=== PATIENT | male | born 1965 | race African-American/Black ===

== ENCOUNTER 2016-09-10 17:59 | Emergency (ER) | payer MEDICAID ==
--- NOTE | 2016-09-10 18:25 | EDPHY ---
H & P Time Seen by Provider: 09/10/16 18:11 HPI/ROS: Chief complaint. Abdominal pain HPI. 50-year-old male presents emergency department with 2 hour history of dizziness, vomiting diarrhea, generalized weakness, abdominal pain. The abdominal pain is generalized and crampy. No fever. No cough, chest discomfort , shortness of breath. no known exposures to Infectious Disease or recent travel. No previous abdominal surgery ROS Constitutional. weakness] Eyes. no problems with vision ENT. no sore throat, no nasal drainage Cardiovascular. no chest pain Respiratory. no shortness of breath, no cough Abdominal. Generalized abdominal pain with vomiting and diarrhea . no problems urinating MS. no calf pain/swelling, no neck/back pain, no joint pain Skin. no rash Lymph. no swollen glands Neuro. Dizzy and weak Past Medical/Surgical History: Hypertension and dyslipidemia Social History: Single, nonsmoker, no alcohol Smoking Status: Never smoked Physical Exam: General Appearance: Alert well-developed male moderate distress vital signs are stable Eyes: Pupils equal and round no pallor or injection. ENT, Mouth: Mucous membranes are moist. Respiratory: There are no retractions, lungs are clear to auscultation. Cardiovascular: Regular rate and rhythm. Gastrointestinal: Abdomen is soft with generalized tenderness. Decreased bowel sounds. No masses Neurological: Awake and alert, sensory and motor exams grossly normal. Skin: Warm and dry, no rashes. Musculoskeletal: Neck is supple nontender. Extremities symmetrical, full range of motion. Psychiatric: Patient is oriented X 3, there is no agitation. Constitutional: Initial Vital Signs Temperature (C) 36.5 C 09/10/16 18:04 Heart Rate 77 09/10/16 18:04 Respiratory Rate 16 09/10/16 18:04 Blood Pressure 127/86 H 09/10/16 18:04 O2 Sat (%) 97 09/10/16 18:04 O2 Delivery Mode Room Air Allergies/Adverse Reactions: No Known Allergies Allergy (Verified 09/10/16 18:03) Home Medications: Medication Instructions Recorded Amlodipine Besylate 04/22/15 Pravastatin Sodium 04/22/15 hydrALAZINE 04/22/15 Ondansetron Odt [Zofran Odt] 4 mg PO Q4PRN PRN #4 tab 09/10/16 Medical Decision Making - Diagnostics Imaging: CT abdomen and pelvis with IV contrast reviewed by me and then discussed with Dr. Wier is consistent with gastroenteritis. No evidence of bowel obstruction or appendicitis Procedures: IV normal saline. Zofran for nausea morphine for ED Course/Re-evaluation: Re-evaluation 8:35 p.m.--patient is stable and feeling much better. He is taking oral fluids. He has no abdominal pain. No further nausea or diarrhea. Patient and I discussed imaging and lab results. We discussed treatment plan including criteria for return and importance of follow-up and further evaluation. He expresses understanding and agreement Differential Diagnosis: I considered appendicitis, diverticulitis, bowel obstruction, gastroenteritis - Data Points Laboratory Results: Laboratory Results 09/10/16 18:41 09/10/16 18:41 09/10/16 09/10/16 18:41 18:41 WBC 11.06 10^3/uL H 10^3/uL (3.80-9.50) RBC 6.88 10^6/uL H 10^6/uL (4.40-6.38) Hgb 15.3 g/dL g/dL (13.7-17.5) Hct 49.1 % % (40.0-51.0) MCV 71.4 fL L fL (81.5-99.8) MCH 22.2 pg L pg (27.9-34.1) MCHC 31.2 g/dL L g/dL (32.4-36.7) RDW 18.5 % H % (11.5-15.2) Plt Count 273 10^3/uL 10^3/uL (150-400) MPV 10.9 fL fL (8.7-11.7) Neut % (Auto) 88.0 % H % (39.3-74.2) Lymph % (Auto) 6.3 % L % (15.0-45.0) [place] % (Auto) 4.4 % L % (4.5-13.0) Eos % (Auto) 0.7 % % (0.6-7.6) Baso % (Auto) 0.2 % L % (0.3-1.7) Nucleat RBC Rel Count 0.0 % % (0.0-0.2) Absolute Neuts (auto) 9.73 10^3/uL H 10^3/uL (1.70-6.50) Absolute Lymphs (auto) 0.70 10^3/uL L 10^3/uL (1.00-3.00) Absolute Monos (auto) 0.49 10^3/uL 10^3/uL (0.30-0.80) Absolute Eos (auto) 0.08 10^3/uL 10^3/uL (0.03-0.40) Absolute Basos (auto) 0.02 10^3/uL 10^3/uL (0.02-0.10) Absolute Nucleated RBC 0.00 10^3/uL 10^3/uL (0-0.01) Immature Gran % 0.4 % % (0.0-1.1) Immature Gran # 0.04 10^3/uL 10^3/uL (0.00-0.10) Sodium 141 mEq/L mEq/L (134-144) Potassium 3.8 mEq/L mEq/L (3.5-5.2) Chloride 98 mEq/L mEq/L (97-110) Carbon Dioxide 26 mEq/l mEq/l (22-31) Anion Gap 17 mEq/L H mEq/L (8-16) BUN 15 mg/dL mg/dL (7-23) Creatinine 1.4 mg/dL H mg/dL (0.7-1.3) Estimated GFR 53 Glucose 117 mg/dL H mg/dL (70-100) Calcium 10.0 mg/dL mg/dL (8.5-10.4) Lipase 88.0 IU/L IU/L (23-300) Medications Given: Discontinued Medications Sodium Chloride (Ns) 1,000 mls @ 0 mls/hr IV ONCE ONE PRN Reason: Wide Open Stop: 09/10/16 18:38 Last Admin: 09/10/16 19:03 Dose: 1,000 mls Sodium Chloride (Ns) 1,000 mls @ 0 mls/hr IV ONCE ONE PRN Reason: Wide Open Stop: 09/10/16 18:38 Last Admin: 09/10/16 19:04 Dose: 1,000 mls Morphine Sulfate (Morphine) 6 mg IVP EDNOW ONE Stop: 09/10/16 18:38 Last Admin: 09/10/16 19:03 Dose: Not Given Ondansetron HCl (Zofran) 4 mg IVP EDNOW ONE Stop: 09/10/16 18:38 Last Admin: 09/10/16 19:04 Dose: 4 mg Departure - Departure Disposition: Home, Routine, Self-Care Clinical Impression: Gastroenteritis Condition: Good Instructions: Acute Nausea and Vomiting (ED), Acute Diarrhea (ED), Loperamide ( By mouth) Additional Instructions: Frequent, small sips fluids well nauseated. Gradual diet advancement. If you are nauseated and vomiting use Zofran which dissolves under your tongue. Wait 20-30 minutes and then begin frequent, small sips fluids. For diarrhea there is a medication called Imodium (loperamide. You may by this without a prescription at the grocery store. Return over the weekend for worsening symptoms. Recheck on Monday for continuing symptoms Referrals: [facility] [Other] - 2-3 days, if not improved Prescriptions: Ondansetron Odt [Zofran Odt] 4 mg PO Q4PRN PRN #4 tab PRN Reason: Nausea/Vomiting, Use 1st
[2016-09-10] MEDS ORDERED: ONDANSETRON 4 MG/2 ML VIAL IVP ONE (18:37)
[2016-09-10] MEDS ORDERED: NS 1,000 ML IV ONE ×2 (18:37)
[2016-09-10 19:10] LABS: % IMMATURE GRANULYOCYTES 0.4 % (0.0-1.1); ABSOLUTE IMMATURE GRANULOCYTES 0.04 10^3/uL (0.00-0.10); ADD DIFF? NO; ADD MORPH? NO; ADD SCAN? NO; ATYPICAL LYMPHOCYTE FLAG 0 (0-99); FRAGMENT RBC FLAG 20 (0-99); HEMATOCRIT 49.1 % (40.0-51.0); HEMOGLOBIN 15.3 g/dL (13.7-17.5); LEFT SHIFT FLG 10 (0-99); LIPEMIA HEMOLYSIS FLAG 80 (0-99); MEAN CELL HEMOGLOBIN 22.2 pg (27.9-34.1); MEAN CELL HEMOGLOBIN CONCENTR. 31.2 g/dL (32.4-36.7); MEAN CELL VOLUME 71.4 fL (81.5-99.8); MEAN PLATELET VOLUME 10.9 fL (8.7-11.7); PLATELET CLUMPS FLAG 0 (0-99); PLATELET COUNT 273 10^3/uL (150-400); RED BLOOD CELL COUNT 6.88 10^6/uL (4.40-6.38); RED CELL DISTRIBUTION WIDTH 18.5 % (11.5-15.2)
[2016-09-10 19:24] LABS: ANION GAP 17 mEq/L (8-16); CARBON DIOXIDE 26 mEq/l (22-31); CHLORIDE 98 mEq/L (97-110); CREATININE 1.4 mg/dL (0.7-1.3); GLOMERULAR FILTRATION RATE 53; GLUCOSE 117 mg/dL (70-100); POTASSIUM 3.8 mEq/L (3.5-5.2); SODIUM 141 mEq/L (134-144)
[2016-09-10] MEDS ORDERED: IOPAMIDOL (ISOVUE-300) 100 ML BTL IV ONE (19:32)
[2016-09-10] MEDS ORDERED: LOPERAMIDE HCL 2 MG CAP PO ONE (20:45)
[2016-09-10] MEDS ORDERED: ONDANSETRON 4MG PREPACK#2 BTL TAKEHOME ONE (20:46)
[2016-09-10 21:05] VITALS: BP 158/95; PULSE 92; RESP 18; TEMP 98.6; O2SAT 98
== END 2016-09-10 21:32 | disposition home or self-care (01) ==
DX: K52.9 Noninfective gastroenteritis and colitis, unspecified (principal); I10 Essential (primary) hypertension
CPT/HCPCS: 96374; J2405; Q9967

== ENCOUNTER 2016-09-29 08:42 | Day surgery (SDC) | payer MEDICAID ==
[2016-09-29] MEDS ORDERED: LR 1,000 ML IV ONE (09:38)
[2016-09-29] MEDS ORDERED: PROPOFOL 200 MG/20 ML VIAL ONE ×2 (10:14)
[2016-09-29] MEDS ORDERED: MIDAZOLAM 2 MG/2 ML VIAL ONE (10:14)
--- NOTE | 2016-09-29 11:39 | GPN ---
[f rep st] PROCEDURE NOTE DATE OF PROCEDURE: 09/29/2016 PROCEDURE: Esophagogastroduodenoscopy with biopsy and dilation. INDICATIONS: Reflux, heartburn, dysphagia. PREOPERATIVE DIAGNOSIS: Rule out esophagitis, rule out stricture. POSTOPERATIVE DIAGNOSES: Normal esophagogastroduodenoscopy with biopsies of the proximal and distal esophagus for evaluation of eosinophilic esophagitis and 60-[place] dilation with no visible effect. INFORMED CONSENT: I had a detailed discussed with the patient regarding the procedure, alternatives , benefits, and risks, including bleeding, perforation, infection, risk of medication. Informed con sent was signed and witnessed. COMPLICATIONS: None immediate. MEDICATIONS USED: MAC as per Dr. Hills. DESCRIPTION OF PROCEDURE: After adequate sedation, patient was in the left lateral decubitus positi on, and the forward viewing upper endoscope was inserted via the oropharynx, advanced under direct v isualization down the esophagus. The esophageal mucosa was normal without any evidence of esophagit is. The endoscope was advanced into the stomach. There were no ulcers or masses. Pylorus was norm al. The duodenal bulb and sweep were normal. The endoscope withdrawn back in the stomach. A retro flex examination was performed. The proximal stomach was normal. The endoscope was un-retroflexed and withdrawn into the esophagus. Biopsies were taken from both the distal and proximal esophagus t o make sure there was no evidence of eosinophilic esophagitis. A guidewire was placed into the stom ach, and the endoscope was removed. A 60-N[place]ien Savary was placed over the guidewire and advanced d own into the stomach with no resistance and no heme. After the Savary dilator was removed, I replac ed the endoscope, and advanced down into the stomach. There was no visible effect of dilation in th e entire esophagus. I suctioned the air from the stomach and then withdrew the endoscope, confirmin g the above findings. The patient tolerated the procedure well, and was transferred to the recovery area in satisfactory condition. IMPRESSION: Normal esophagogastroduodenoscopy, status post biopsy for eosinophilic esophagitis and dilation with no visible defect. RECOMMENDATIONS: 1. Continue PPI 40 at mg daily half an hour to an hour before breakfast. 2. If any nighttime activities counselor symptoms, consider adding q.h.s. H2 RA. 3. Continue anti-reflux lifestyle changes. 4. Followup in the office in approximately 8-12 weeks. We will contact the patient for followup ap pointment. If symptoms have resolved at that time, we will try to taper down the medications to the least amount that controls the symptoms. 5. With no evidence of esophagitis, recommended medications are the least amount that control his s ymptoms. 6. If there is any evidence of eosinophilic esophagitis, (I do not think this will be the case), th en I will refer to an video games mechanic, making use of fluticasone when he has dysphagia. 7. Follow up with PCP as scheduled. Thank you for allowing me the opportunity to participate in the patient's healthcare. Do not hesita te to call me with any questions. Copy requested to: Ashlee Chen NP /[id number]/MODL
== END 2016-09-29 11:45 | disposition home or self-care (01) ==
LOC: FSGY 08:42
PROVIDERS: ATTEND Internal Medicine Gastroenterology
PROC: 0DB18ZX Excision of Upper Esophagus, Via Natural or Artificial Opening Endoscopic, Diagnostic (ICD-10-PCS; principal; 2016-09-29 10:00)
PROC: 0D758ZZ Dilation of Esophagus, Via Natural or Artificial Opening Endoscopic (ICD-10-PCS; principal; 2016-09-29 10:00)
PROC: 0DB38ZX Excision of Lower Esophagus, Via Natural or Artificial Opening Endoscopic, Diagnostic (ICD-10-PCS; principal; 2016-09-29 10:00)
DX: K21.9 Gastro-esophageal reflux disease without esophagitis (principal); R13.10 Dysphagia, unspecified; R12 Heartburn; R11.0 Nausea; I10 Essential (primary) hypertension
CPT/HCPCS: J2250; J2704